=== PATIENT | male | born 1970 | race Caucasian/White ===

== ENCOUNTER → 2020-10-28 | Outpatient (CLI) | payer OTHER, SELFPAY | END | disposition home or self-care (01) | LOC: LABSPEC 12:41 | PROVIDERS: PCP Family Medicine; Referring Provider Nurse Practitioner Adult Health; Visit Provider Nurse Practitioner Adult Health | DX: R31.9 Hematuria, unspecified (principal) | CPT/HCPCS: 87086 ==

== ENCOUNTER → 2020-10-29 09:13 | Outpatient (CLI) | payer OTHER, SELFPAY ==
--- NOTE | 2020-10-29 09:23 | CT_ITS ---
STUDY: CT ABDOMEN AND PELVIS WITHOUT CONTRAST REASON FOR EXAM: Male, 49 years old. GROSS Hematuria, calculus OF URETER RADIATION DOSAGE (If Supplied By Facility): CTDIvol = ( 13.60 ) mGy, DLP = ( 784.94 ) mGycm TECHNIQUE: Transaxial images were obtained from the dome of the diaphragm to the symphysis pubis without oral contrast, and without intravenous contrast. Sagittal and coronal images were reconstructed. Individualized dose optimization techniques were used for this CT. COMPARISON: Comparison is made with prior outside examination dated 07/29/2020. FINDINGS: The visualized lung bases are unremarkable. The visualized portions of the heart are within normal limits. There is decreased attenuation of the liver consistent with steatosis. Normal gallbladder and extrahepatic biliary system. There are multiple benign calcified granulomata of the spleen. Normal pancreas. Normal bilateral adrenal glands. Stable small nonobstructive right intrarenal calculi. The largest is in the lower pole calyx and measures 8.1 mm. Mild residual left hydronephrosis and left hydroureter down to the level of the bladder. The previously seen calculus in the distal portion of the left ureter is not seen at this time. Normal visualized stomach. Normal small intestine. Normal colon. The appendix is visualized and appears normal. Normal abdominal aorta. Normal inferior vena cava. Normal retroperitoneum. Normal urinary bladder. There are prostatic calcifications. There is a small umbilical hernia containing fat. Normal osseous structures. CT/Abdomen/Pelvis without Cont IMPRESSION: Nonobstructive right intrarenal calculi. Mild residual left hydronephrosis and left hydroureter. The previously seen distal left ureteral calculus is not seen at this time. Electronically Signed: Ashish Padilla MD at 10:40 EDT , Service support ,
== END ==
PROVIDERS: PCP Family Medicine; Referring Provider Nurse Practitioner Adult Health; Visit Provider Nurse Practitioner Adult Health
DX: N13.2 Hydronephrosis with renal and ureteral calculous obstruction (principal); R31.0 Gross hematuria
CPT/HCPCS: 74176

== ENCOUNTER → 2020-11-18 12:27 | Outpatient (CLI) | payer OTHER, SELFPAY ==
[2020-11-18 14:26] LABS: PSA,Total - Annual Screen 0.28 ng/mL (0.00-4.00)
== END ==
PROVIDERS: PCP Family Medicine; Referring Provider Nurse Practitioner Adult Health; Visit Provider Nurse Practitioner Adult Health
DX: Z12.5 Encounter for screening for malignant neoplasm of prostate (principal)
CPT/HCPCS: 36415; 84153; G0103

== ENCOUNTER 2021-01-21 09:25 | Day surgery (SDC) | payer OTHER, SELFPAY ==
[2020-12-30 14:14] VITALS: BMI 33.1
[2021-01-21] VITALS (7 sets, daily range): BP systolic 96–130; BP diastolic 70–84; PULSE 56–66; RESP 16–18; TEMP 36.1; O2SAT 95–96; BMI 32.0
[2021-01-21] MEDS: Lactated Ringers 1,000 ML 100 ML IV (10:36)
--- NOTE | 2021-01-21 10:53 | PCM.HP.BLA ---
History and Physical Date of Admission: 01/21/21 Intake Vital Signs 12/30/20 14:14 Height 6 ft 1 in Weight: 251 lb BMI 33.1 BP 142/92 H Blood Pressure Location Rt brachial Position Sitting Respiration 18 Pulse 70 Pulse Source NIBP Temp 98.0 F Temp Source Temporal Pulse Oximetry (%) 98 Oxygen Delivery Method room air Intake Visit Reasons: CSCOPE, POSITIVE COLOGUARD Chief Complaint: positive cologuard Safe Deposit Attendant Required: No Is patient in pain?: No Allergies alfuzosin Adverse Reaction (Intermediate, Verified 12/30/20 14:18) tachycardia Medications cranberry fruit concentrate 250 mg chewable tablet 250 mg PO BID tab 12/30/20 [History Confirmed 12/30/20] fluticasone propionate 50 mcg/actuation nasal spray,suspension gm INTRANASAL 12/30/20 [History Confirmed 12/30/20] lisinopril 20 mg tablet ea PO 12/30/20 [History Confirmed 12/30/20] PFSH Medical History (Updated 12/30/20 @ 14:[address] Dennis Cedeno MD) Environmental and seasonal allergies ETD (eustachian tube dysfunction) History of anal fissures History of prostatitis History of renal calculi HTN (hypertension) Surgical History (Updated 12/30/20 @ 14:14 by Acacia Sevilla) History of left inguinal hernia repair History of lithotripsy History of removal of ureteral stent Family History (Updated 12/30/20 @ 14:14 by Acacia Sevilla) Father Cancer prostate Social History (Updated 12/30/20 @ 14:14 by Acacia Sevilla) Smoking Status: Never smoker HPI HPI HPI: HARINDER BAI, is a 50 M who presents to the office today for positive Cologuard test. Patient has noted some bright red blood in his stool off and on when he has a constipated bowel movement. He is not having any abdominal pain. He has never had a colonoscopy in the past. He had a Cologuard test to try to avoid colonoscopy but this came back positive. Patient is not on any blood thinners. ROS General General: No weight change or fatigue HEENT HEENT: No difficulty swallowing Endo Endocrine: No thyroid disease Musc Musculoskeletal: No back problems or arthritis Cardio Cardiovascular: No pacemaker, heart disease, atrial fibrillation, high blood pressure, heart attack, heart stent, palpitations or chest pain Psych Psychiatric: No depression or anxiety Resp Respiratory: No shortness of breath, No cough, No COPD, No asthma and No emphysema Gastro Gastrointestinal: No abdominal pain, No nausea or vomiting, No diarrhea, No constipation, No blood in stool, No acid reflux, No hemorrhoids, No ulcers, No gallbladder problem and No black,tarry stools Demetri Hematologic: No blood thinners Exam Const General: cooperative Orientation: alert and oriented x3 HENMT Head: normal to inspection Neck Neck: normal visual inspection and full ROM Chest Chest palpation & inspection: normal inspection of the chest Resp Effort & Inspection: normal respiratory effort Auscultation: clear to auscultation bilaterally Cardio Rate: regular rate Rhythm: regular rhythm GI Inspection: non-distended Palpation: soft and nontender Skin General: no rashes or lesions noted Neuro General: patient alert and patient oriented x3 Extrem General: full ROM Psych Appearance: grossly normal Mental Status: mental status grossly normal Assessment and Plan Assessment and Plan (1) Positive colorectal cancer screening using Cologuard test: Status: Acute Orders: Orders: Colonoscopy Today Plan - Dr. Dennis Cedeno MD: I discussed colonoscopy with the patient for his positive Cologuard test. I explained endoscopy in detail to the patient. I explained the risks including but not limited to stroke or heart attack with anesthesia, perforation of the GI tract, bleeding, infection. I explained that any of these could necessitate further emergency surgery. The patient understands and all questions were answered sufficiently. The patient wishes to proceed with procedure. Dennis Cedeno MD Pager: [facility] [address] [place] [address] [address] [place] [address] Office: I have re-examined the patient. There are no clinical changes since date of exam.
--- NOTE | 2021-01-21 11:15 | OP.COLON_ITS ---
Patient Name: Tobi Kunz Procedure Date: 01/21/2021 10:53 AM Date of : 1970 Age: 50 Procedure: Colonoscopy Indications: Positive Cologuard test Providers: Dennis Cedeno MD Referring MD: Yogesh Glez Medicines: Monitored Anesthesia Care Patient Profile: This is a 50 year old male. Refer to note in patient chart for documentation of history and physical. Last Colonoscopy: none. The patient's first colonoscopy is today. Complications: No immediate complications. Procedure: Pre-Anesthesia Assessment: - Prior to the procedure, a History and Physical was performed, and patient medications and allergies were reviewed. The patient's tolerance of previous anesthesia was also reviewed. The risks and benefits of the procedure and the sedation options and risks were discussed with the patient. All questions were answered, and informed consent was obtained. Prior Anticoagulants: The patient has taken no previous anticoagulant or antiplatelet agents. After reviewing the risks and benefits, the patient was deemed in satisfactory condition to undergo the procedure. After I obtained informed consent, the scope was passed under direct vision. Throughout the procedure, the patient's blood pressure, pulse, and oxygen saturations were monitored continuously. The adult colonoscope was introduced through the anus and advanced to the cecum, identified by appendiceal orifice and ileocecal valve. The colonoscopy was performed without difficulty. The patient tolerated the procedure well. The quality of the bowel preparation was good. Scope In: 11:01:51 AM Scope Withdrawal Time 0 hours 6 minutes 1 second Scope Out: 11:12:33 AM Total Procedure Duration Time 0 hours 10 minutes 42 seconds Findings: The entire examined colon appeared normal on direct and retroflexion views. Impression: - The entire examined colon is normal on direct and retroflexion views. - No specimens collected. Recommendation: - Discharge patient to home. - Resume previous diet. - Continue present medications. - Repeat colonoscopy in 10 years for screening purposes. Procedure Code(s): --- Professional --- 74836, Colonoscopy, flexible; diagnostic, including collection of specimen(s) by brushing or washing, when performed (separate procedure) Diagnosis Code(s): --- Professional --- R19.5, Other fecal abnormalities CPT copyright 2017 [employer] [place] [employer]. All rights reserved. The codes documented in this report are preliminary and upon academic specialist review may be revised to meet current compliance requirements. Dennis Cedeno MD 01/21/2021 11:15:17 AM This report has been signed electronically. Number of Addenda: 0 Note Initiated On: 01/21/2021 10:53 AM
--- NOTE | 2021-01-21 11:15 | OP.CCLET_ITS ---
01/21/2021 Yogesh Glez Re : Colonoscopy procedure for Tobi Mcguire Newton This procedure was performed on Thursday, January 21, 2021. My impressions and recommendations are as follows: Impressions : - The entire examined colon is normal on direct and retroflexion views. - No specimens collected. Recommendations : - Discharge patient to home. - Resume previous diet. - Continue present medications. - Repeat colonoscopy in 10 years for screening purposes. My findings are described in the full procedure note, which is enclosed. If I can be of further assistance, please feel free to contact me at Doctor phone number(s): , Work: . Sincerely, Dennis Cedeno MD 01/21/2021 11:15:17 AM This report has been signed electronically.
== END 2021-01-21 11:55 | disposition home or self-care (01) ==
LOC: EN 09:26 → AC 09:26
PROVIDERS: PCP Family Medicine; Referring Provider Family Medicine; Visit Provider Surgery
PROC: 0DJD8ZZ Inspection of Lower Intestinal Tract, Via Natural or Artificial Opening Endoscopic (ICD-10-PCS; CPT 45378; principal; 2021-01-21 10:55)
DX: Z12.11 Encounter for screening for malignant neoplasm of colon (principal); R19.5 Other fecal abnormalities; I10 Essential (primary) hypertension; Z20.822 Contact with and (suspected) exposure to COVID-19; Z79.899 Other long term (current) drug therapy
CPT/HCPCS: 45378; 87426; C9803; J7120; J2405

== ENCOUNTER → 2021-02-21 13:45 | Outpatient (CLI) | payer OTHER, SELFPAY ==
[2021-01-21 09:50] VITALS: BMI 32.0
--- NOTE | 2021-02-21 13:48 | CT_ITS ---
STUDY: CT ABDOMEN AND PELVIS WITHOUT CONTRAST REASON FOR EXAM: Male, 50 years old. ACUTE PROSTATITIS RADIATION DOSAGE (If Supplied By Facility): CTDIvol = ( 12.00 ) mGy, DLP = ( 947.83 ) mGycm TECHNIQUE: Transaxial images were obtained from the dome of the diaphragm to the symphysis pubis without oral contrast, and without intravenous contrast. Sagittal and coronal images were reconstructed. Individualized dose optimization techniques were used for this CT. COMPARISON: Comparison is made with prior examination dated 10/29/2020. FINDINGS: Comparison is made with prior study dated 10/29/2020. The visualized portions of the heart are within normal limits. There is decreased attenuation of the liver consistent with steatosis. Normal gallbladder and extrahepatic biliary system. There are multiple benign calcified granulomata of the spleen. Normal pancreas. Normal bilateral adrenal glands. Stable 8.1 mm calculus in the lower pole calyx of the right kidney. Questionable 1.6cm cyst in the lateral midportion of the left kidney. Normal visualized stomach. Normal small intestine. Normal colon. The appendix is visualized and appears normal. Normal abdominal aorta. Normal inferior vena cava. Normal retroperitoneum. Normal urinary bladder. There are prostatic calcifications. There is a small umbilical hernia containing fat. Normal osseous structures. CT/Abdomen/Pelvis without Cont IMPRESSION: Stable 8 mm calculus in the lower pole calyx of the right kidney. Fatty infiltration of the liver. Electronically Signed: Ashish Padilla MD at 15:05 EDT , Service support ,
== END ==
PROVIDERS: PCP Family Medicine; Referring Provider Urology; Visit Provider Urology
DX: N41.0 Acute prostatitis (principal); N20.0 Calculus of kidney; K76.0 Fatty (change of) liver, not elsewhere classified
CPT/HCPCS: 74176

== ENCOUNTER → 2021-05-01 11:14 | Outpatient (CLI) | payer OTHER, SELFPAY ==
--- NOTE | 2021-05-01 11:17 | RAD_ITS ---
STUDY: X-RAY - ABDOMEN/PELVIS REASON FOR EXAM: Male, 50 years old. CALCULUS RIGHT SIDE TECHNIQUE: AP abdomen radiograph COMPARISON: None. FINDINGS: Normal visualized lung bases. There is an unremarkable bowel gas pattern. There is no demonstrated free abdominal air. The visualized liver, spleen and kidneys are grossly normal in size and morphology. 8 mm calculus projects over the inferior renal collecting system. There are calcified phleboliths in the pelvis. Normal visualized osseous structures. RAD/Abdomen Single View IMPRESSION: 8 mm right renal calculus. Electronically Signed: [place] Roberto MD at 6:46 EDT Tel , Service support ,
[2021-05-01 14:43] LABS: Hematocrit 42.7 % (40-54); Hemoglobin 14.7 g/dL (13.0-16.5); Mean Corp Hgb Conc 34.4 g/dL (32-36); Mean Corpuscular Hgb 31.1 pg (27.0-32.0); Mean Corpuscular Volume 90.3 fL (80-94); Mean Platelet Vol. 9.8 fl (6.2-12.0); Platelet Count 277 K/mm3 (150-450); RBC Distribution Width CV 11.5 % (11.6-14.6); RBC Distribution Width SD 38.3 fl (35.1-43.9); Red Blood Count 4.73 M/mm3 (4.6-6.2); White Blood Count 5.8 K/mm3 (4.4-11.0)
[2021-05-01 15:05] LABS: Anion Gap 5 (5-15); BUN 14 mg/dL (7-18); BUN/Creat Ratio 13.5 RATIO (10-20); Calcium,Total 9.3 mg/dL (8.5-10.1); Chloride 105 mmol/L (98-107); Creatinine, Serum 1.04 mg/dL (0.70-1.30); EST Glomerular Filtration Rate 80 mL/min (>60); Est Glom Filt Rate - Afr Amer 97 mL/min (>60); Glucose 138 mg/dL (74-106); Potassium 3.5 mmol/L (3.5-5.1); Sodium Level 140 mmol/L (136-145)
== END ==
PROVIDERS: PCP Family Medicine; Referring Provider Urology; Visit Provider Urology
DX: Z01.810 Encounter for preprocedural cardiovascular examination (principal); N20.0 Calculus of kidney; I10 Essential (primary) hypertension
CPT/HCPCS: 36415; 74018; 80048; 85027; 87635; 93005; C9803; U0005; U0003

== ENCOUNTER → 2022-01-27 | Outpatient (CLI) | payer OTHER, SELFPAY ==
--- NOTE | 2022-01-27 14:30 | RAD_ITS ---
EXAM: XR ABDOMEN, 1 VIEW CLINICAL INDICATION: CALCULUS OF KIDNEY TECHNIQUE: Frontal supine view of the abdomen/pelvis. This report was created using [employer] report generation technology. COMPARISON: None. FINDINGS: LOWER THORAX: No acute pathology. GASTROINTESTINAL TRACT: Unremarkable. Non-obstructive. No bowel or stomach distention. ORGANS: Very irregular stone measuring up to 6 mm overlying the lower pole of the right kidney. No organomegaly. BONES/JOINTS: No acute pathology. SOFT TISSUES: No acute pathology. VASCULATURE: Small calcifications left side of the pelvis likely represent phleboliths. RAD/Abdomen Single View IMPRESSION: 1. Very irregular stone measuring up to 6 mm overlying the lower pole of the right kidney. 2. Small calcifications left side of the pelvis likely represent phleboliths. Electronically Signed: Mika Correa MD at 5:02 EDT ,
== END | disposition home or self-care (01) ==
LOC: RAD 01-29 17:22
PROVIDERS: PCP Family Medicine; Visit Provider Urology
DX: N20.0 Calculus of kidney (principal)
CPT/HCPCS: 74018

== ENCOUNTER → 2023-01-28 | Outpatient (CLI) | payer OTHER, SELFPAY ==
--- NOTE | 2023-01-28 13:23 | RAD_ITS ---
STUDY: X-RAY - ABDOMEN/PELVIS REASON FOR EXAM: Male, 52 years old. Renal calculi. TECHNIQUE: Single AP view of the abdomen / pelvis on 2 images. COMPARISON: Abdominal x-ray dated January 2022. FINDINGS: Normal visualized lung bases. There is an unremarkable bowel gas pattern. There is no demonstrated free abdominal air. The visualized liver, spleen and kidneys are grossly normal in size and morphology. Solitary calcification projecting over the lower pole of the right kidney measuring 1.4 cm, unchanged from prior study. Normal visualized osseous structures. RAD/Abdomen Single View IMPRESSION: Stable right nephrocalcinosis. No acute abnormality. Electronically Signed: Praful Sofia MD at 15:56 EDT ,
[2023-01-28 13:48] LABS: ALB/GLOB Ratio 1.1 RATIO (0.9-2.4); AST(SGOT) 31 U/L (15-37); Alanine Aminotransfer ALT/SGPT 59 U/L (16-61); Albumin, Serum 3.9 g/dL (3.2-5.0); Alkaline Phosphatase 41 U/L (45-117); Anion Gap 7 (5-15); BUN 12 mg/dL (7-18); BUN/Creat Ratio 13.1 RATIO (10-20); Calcium,Total 8.8 mg/dL (8.5-10.1); Chloride 106 mmol/L (98-107); Cholesterol 196 mg/dL (200); Creatinine, Serum 0.92 mg/dL (0.70-1.30); EST Glomerular Filtration Rate 92 mL/min (>60); Est Glom Filt Rate - Afr Amer 111 mL/min (>60); Globulin 3.7 g/dL (2.2-4.2); Glucose 91 mg/dL (74-106); High Density Lipoprotein 42 mg/dL; PSA,Total- Diagnostic 0.31 ng/mL (0.0-4.0); Potassium 3.7 mmol/L (3.5-5.1); Protein, Total 7.6 g/dL (6.4-8.2); Sodium Level 139 mmol/L (136-145); Triglycerides 77 mg/dL; Very Low Density Lipoprotein 15 mg/dL (5-40)
== END | disposition home or self-care (01) ==
PROVIDERS: PCP Family Medicine; Referring Provider Urology; Visit Provider Urology
DX: N20.0 Calculus of kidney (principal); Z13.1 Encounter for screening for diabetes mellitus; Z13.220 Encounter for screening for lipoid disorders; Z12.5 Encounter for screening for malignant neoplasm of prostate; Z80.42 Family history of malignant neoplasm of prostate
CPT/HCPCS: 36415; 74018; 80053; 80061; 84153

== ENCOUNTER → 2023-03-23 | Outpatient (CLI) | payer OTHER, SELFPAY ==
--- NOTE | 2023-03-23 14:23 | RAD_ITS ---
STUDY: X-RAY - ABDOMEN/PELVIS REASON FOR EXAM: Male, 52 years old. Renal calculi. Follow-up. TECHNIQUE: Single AP view of the abdomen / pelvis onto the images. COMPARISON: January 28, 2023 FINDINGS: Normal visualized lung bases. Normal bowel gas pattern with no disproportionate dilatation and air seen to the rectosigmoid. Calcification projected over the lower pole of the right kidney on the prior study is no longer visualized. Small calcifications projected over the left renal hilum. Normal soft tissue structures. Normal visualized osseous structures. RAD/Abdomen Single View IMPRESSION: Resolution of right lower pole calcification. Small calcifications projected over the left renal pelvis which may represent nephrocalcinosis. No acute finding. Electronically Signed: Praful Sofia MD at 15:00 EDT ,
== END | disposition home or self-care (01) ==
LOC: RAD 14:17
PROVIDERS: PCP Family Medicine; Referring Provider Urology; Visit Provider Urology
DX: N20.0 Calculus of kidney (principal)
CPT/HCPCS: 74018

== ENCOUNTER → 2024-11-06 | Outpatient (CLI) | payer OTHER, SELFPAY ==
--- NOTE | 2024-11-06 13:25 | RAD_ITS ---
PROCEDURE: ABDOMEN SINGLE VIEW 11/06/2024 REASON FOR EXAM: HISTORY OF URNARY CALCULI TECHNIQUE: Single view abdomen. COMPARISON: None FINDINGS: Bowel gas: Bowel gas pattern is remarkable for mild constipation. No evidence of bowel obstruction. Calcifications: There are 4 calcific densities projected over the right kidney. The largest is in the superior pole measuring 3 mm. The others measure proximally 1-2 mm. These may represent renal stones. Targeted ultrasound is recommended for further evaluation. The left kidney outline as well preserved. No suspicious calcific densities are projected over the left kidney. There are no abnormal calcific densities seen in the region of the ureters or urinary bladder. Psoas muscles are well outlined. Bones: The bones are unremarkable. RAD/Abdomen Single View IMPRESSION: There are 4 calcific densities projected over the right kidney which may repres ent renal stones. Targeted ultrasound may be of value for further evaluation. Reading Location: [id number]
[2024-11-06 16:20] LABS: Hematocrit 41.7 % (40-54); Hemoglobin 14.7 g/dL (13.0-16.5); Mean Corp Hgb Conc 35.3 g/dL (32-36); Mean Corpuscular Hgb 31.5 pg (27.0-32.0); Mean Corpuscular Volume 89.3 fL (80-94); Mean Platelet Vol. 10.5 fl (6.2-12.0); Platelet Count 266 K/mm3 (150-450); RBC Distribution Width CV 11.6 % (11.6-14.6); RBC Distribution Width SD 37.4 fl (35.1-43.9); Red Blood Count 4.67 M/mm3 (4.6-6.2); White Blood Count 6.5 K/mm3 (4.4-11.0)
[2024-11-06 16:50] LABS: Anion Gap 12 (5-15); BUN 12 mg/dL (4-19); BUN/Creat Ratio 11.8 RATIO (10-20); Calcium,Total 9.4 mg/dL (7.6-11.0); Carbon Dioxide 23.2 mmol/L (21.0-32.0); Chloride 103 mmol/L (98-108); Creatinine, Serum 1.02 mg/dL (0.70-1.20); EST Glomerular Filtration Rate 87 (>60); Glucose 86 mg/dL (70-99); Potassium 3.5 mmol/L (3.3-5.1); Sodium Level 138 mmol/L (133-145)
== END | disposition home or self-care (01) ==
PROVIDERS: PCP Family Medicine; Referring Provider Urology; Visit Provider Urology
DX: N21.0 Calculus in bladder (principal); Z87.442 Personal history of urinary calculi
CPT/HCPCS: 36415; 74018; 80048; 85027

== ENCOUNTER → 2024-11-07 | Outpatient (CLI) | payer OTHER, SELFPAY ==
--- NOTE | 2024-11-07 12:49 | EKG12_ITS ---
Test Reason : PREOP Blood Pressure : */* mmHG Vent. Rate : 63 BPM Atrial Rate : 63 BPM P-R Int : 120 ms QRS Dur : 84 ms QT Int : 406 ms P-R-T Axes : 20 26 58 degrees QTcB Int : 415 ms Normal sinus rhythm Normal ECG When compared with ECG of 01-May-2021 14:13, No significant change was found Confirmed by JOHNSON DOSS, RADHA ([id number]), proposal editor SHABNAM RUIZ ([id number]) on 11/08/2024 1:13:02 PM Referred By: Juan Luong Confirmed By: RADHA ORNELAS MD
== END | disposition home or self-care (01) ==
LOC: PSN 12:48
PROVIDERS: PCP Family Medicine; Referring Provider Urology; Visit Provider Urology
DX: N21.0 Calculus in bladder (principal)
CPT/HCPCS: 93005